=== PATIENT | male | born 1985 | race African-American/Black ===

== ENCOUNTER 2022-03-18 21:37 | Emergency (ER) | payer OTHER ==
[~2022-03-18] VITALS: Ht 165.1 cm; Wt 68.0 kg
[2022-03-18 21:40] VITALS: BP 132/92; TEMP 97.6
== END 2022-03-19 00:30 | disposition home or self-care (01) ==
LOC: ED 21:37
DX: M25.512 Pain in left shoulder (principal); S16.1XXA Strain of muscle, fascia and tendon at neck level, initial encounter; V43.53XA Car driver injured in collision with pick-up truck in traffic accident, initial encounter; Y92.89 Other specified places as the place of occurrence of the external cause
CPT/HCPCS: 99283